=== PATIENT | male | born 1995 | race Caucasian/White ===

== ENCOUNTER 2020-12-29 14:25 | Emergency (ER) | payer MEDICAID, SELFPAY ==
[2020-12-29 15:42] VITALS: BP 148/77; PULSE 104; RESP 16; TEMP 38.1; O2SAT 98; BMI 26.6
--- NOTE | 2020-12-29 15:57 | HMH.EDUTC ---
[facility] Disposition Clinical Impression: Viral syndrome, Exposure to COVID-19 virus Sinusitis Qualifiers: Sinusitis location: unspecified location Chronicity: acute Recurrence: non-recurrent Qualified Code(s): J01.90 - Acute sinusitis, unspecified Disposition: Home, Self-Care Condition on Discharge: Good Instructions: DI for COVID-19 (Suspected or Confirmed ), Preventing the Spread of Coronavirus Discharge Instructions Additional Instructions: Drink plenty of fluids. Take tylenol or ibuprofen for pain or fever. Take the medications as directed. Follow up with your regular doctor. GO TO THE ER FOR ANY WORSENING SYMPTOMS Quarantine until you know the results of your covid-19 test. If it is positive, the health department should call you and give you further instructions about your length of Quarantine and other things. Notify your school or workplace of your results and follow their instructions regarding return to work/school. Prescriptions: Brompheniramine/Pseudoephed/Dm [Bromfed Dm Cough Syrup] 5 ml PO Q6HP PRN #240 ml PRN Reason: Cough Transmission Status: Received by [facility] #[id number] Azithromycin [Z-Hever 250mg Tab*] 250 mg PO UD DOSE PK #6 tab Transmission Status: Received by [facility] #[id number] Ondansetron [Zofran 4mg ODT] 4 mg PO DAILYP PRN #12 tab PRN Reason: Nausea Transmission Status: Received by [facility] #[id number] Referrals: Provider,Referral, MD [Primary Care Provider] - Forms: Work/School Release Time of Disposition: 16:08 Medical Decision Making - Medical Records Medical records reviewed: No: I reviewed the patient's medical records. - Kristofer Inquiry Pt receiving controlled substance: No Vital Signs: 12/29/20 15:42 12/29/20 16:15 Temperature 100.5 F H 98 F Temperature Source Oral Pulse Rate 104 H Pulse Rate [Right Radial] 104 H Respiratory Rate 16 16 Blood Pressure 148/77 H Blood Pressure [Right Arm] 148/77 H Blood Pressure Mean [Right Arm] 100 Blood Pressure Source [Right Arm] Automatic Cuff Blood Pressure Position [Right Arm] Sitting 02 Sat by Pulse Oximetry 98 Oxygen Delivery Method Room Air [facility] HPI - General Stated complaint: Congestion, runny nose Time Seen by Provider: 12/29/20 15:57 Mode of Arrival: Ambulatory Source of Information: Patient Limitations: No Limitations Description of Symptoms (Recalled from Triage Doc. by RN): C/O bodyaches, sinus congestion, earache, diarrhea, sweats HEENT Symptoms (Recalled from RN notes): Yes (earache, sinus congestion) Resp Symptoms (Recalled from RN notes): No Skin Symptoms (Recalled from RN notes): No MS Symptoms (Recalled from RN notes): Yes (bodyaches) Functional Status (Recalled from RN notes): n/a - History of Present Illness Provider Complaint: He states that for the past 2 days he has had sinus congestion, scratchy sore throat, a dry cough and diarrhea. He denies any known covid-19 or other sick contacts. He has not been vaccinated against covid-19. - Related Data Previous Rx's Medication Instructions Recorded Azithromycin [Z-Hever 250mg Tab*] 250 mg PO UD DOSE PK #6 tab 12/29/20 Brompheniramine/Pseudoephed/Dm 5 ml PO Q6HP PRN #240 ml 12/29/20 [Bromfed Dm Cough Syrup] Ondansetron [Zofran 4mg ODT] 4 mg PO DAILYP PRN #12 tab 12/29/20 Allergies Allergy/AdvReac Type Severity Reaction Status Date / Time No Known Allergies Allergy Verified 12/29/20 15:49 - Worker's Comp Is this a Worker's Comp case?: No [facility] History - Hepatitis A Screen Drug use history?: No High risk sexual behaviors?: No History of sexually transmitted infection?: No Currently employed?: No Childcare worker?: No Do you have indoor plumbing?: Yes Do you have electricity?: Yes Attestation statement:: This patient has been screened for Hepatitis A risk factors. I have reviewed the patient's past medical history: Yes ROS Obtained: Yes All systems reviewed & no addition
[2020-12-29 16:15] VITALS: BP 148/77; PULSE 104; RESP 16; TEMP 36.6; O2SAT 98
== END 2020-12-29 16:16 | disposition home or self-care (01) ==
PROVIDERS: Emergency Provider Nurse Practitioner Family
DX: U07.1 COVID-19 (principal); J01.90 Acute sinusitis, unspecified; B34.9 Viral infection, unspecified
CPT/HCPCS: 99202; C9803; G0463; U0003; U0005

== ENCOUNTER 2023-04-02 18:28 | Emergency (ER) | payer MEDICAID, SELFPAY ==
[2023-04-02 18:45] VITALS: BP 139/78; PULSE 86; RESP 18; TEMP 36.7; O2SAT 98; BMI 24.0
--- NOTE | 2023-04-02 18:48 | EXP.UTC ---
Discharge Plan Disposition Patient Disposition: Home, Self-Care Condition: Good Prescriptions Prescriptions: New azithromycin [Zithromax] 250 mg tablet 250 mg PO UD DOSE PK Qty: 6 0RF Rx Instructions: Take two (2) tablets today, then one (1) tablet days #2 thru #5 [id number] [Bromfed DM] 2-30-10 mg/5 mL Syrup 5 ml PO Q6H PRN (Reason: Cough) Qty: 240 0RF Referrals Follow up/Referrals: Provider,Referral, MD [Primary Care Provider] - See instructions Activity Restrictions/Add. Instructions Additional Instructions/Restrictions: Drink plenty of fluids. Take tylenol or ibuprofen for pain or fever. Take the medications as directed. Follow up with your regular doctor. GO TO THE ER FOR ANY WORSENING SYMPTOMS Clinical Impressions Clinical Impression: Sinusitis Stand Alone Forms Stand Alone Forms: Work/School Release Instructions Patient Instructions: Sinusitis, DI for Sinusitis Discharge ED Provider: Ayden Alicea [facility] General Stated complaint: runny nose, VEE , bilateral earache Time Seen by Provider: 04/02/23 18:47 History of Present Illness Provider Complaint: He states that for the past 2 days he has had sinus congestion, sinus pressure, ear pain and a cough. Related Data Previous Rx's Medication Instructions Recorded azithromycin 250 mg tablet 250 mg PO UD DOSE PK #6 tabs 04/02/23 (Zithromax) [id number]-pcwnkbritnotttc-BT 5 ml PO Q6H PRN Cough #240 mL 04/02/23 2 mg-30 mg-10 mg/5 mL oral syrup (Bromfed DM) Allergies Allergy/AdvReac Type Severity Reaction Status Date / Time No Known Allergies Allergy Verified 04/02/23 18:55 [facility] Disclaimer: The information contained in this section may have been updated after the patient was seen, as this information can be updated by other users. Social History Smoking Status: Never smoker alcohol intake: never current occupational status: employed Travel in the last 8 weeks: None ROS Obtained: Yes All systems reviewed & no additional complaints except as documented Constitutional Constitutional: Reports poor appetite Eyes Eyes: Reports system reviewed and no additional complaints, except as documented ENT Ears, Nose, Mouth, and Throat: Reports as per HPI Cardiovascular Cardiovascular: Reports system reviewed and no additional complaints, except as documented and Denies chest pain Respiratory Respiratory: Denies shortness of breath, Denies chest congestion, Reports cough, Denies stridor and Denies wheezing Gastrointestinal Gastrointestingal: Reports system reviewed and no additional complaints, except as documented; Denies abdominal pain, diarrhea or vomiting Musculoskeletal Musculoskeletal: Reports system reviewed and no additional complaints, except as documented and Denies arthralgias Integumentary/Breasts Skin/Breast: Reports system reviewed and no additional complaints, except as documented and Denies rash Neurologic Neurologic: Denies paresthesias Allergic/Immunologic Allergic/Immunologic: Denies wheezing Physical Exam General General appearance: alert and in no apparent distress Eye Eye exam: Present normal appearance, PERRL and EOMI ENT ENT exam: Present mucous membranes moist and normal external ear exam Expanded ENT Exam External ear exam: Present normal external inspection TM/Canal exam: Bilateral TM: erythema and bulging Nose exam: Absent sinus tenderness Nasal speculum exam: Bilateral: normal Mouth exam: Present normal external inspection; Absent drooling Teeth exam: Present normal inspection Throat exam: Present tonsillar erythema and tonsillomegaly Neck Neck exam: Present normal inspection, full ROM and trachea midline; Absent tenderness, lymphadenopathy or thyromegaly Chest Chest inspection: Present normal inspection and symmetric chest wall rise; Absent tenderness or rash Respiratory Respiratory exam: Present normal lung sounds bilaterally; Absent respira
[2023-04-02 19:06] LABS: UTC Influenza A Antigen Negative (Negative); UTC Influenza B Antigen Negative (Negative)
[2023-04-02 19:43] VITALS: BP 139/78; PULSE 86; RESP 18; TEMP 36.7; O2SAT 98
== END 2023-04-02 19:43 | disposition home or self-care (01) ==
PROVIDERS: Emergency Provider Nurse Practitioner Family
DX: J01.90 Acute sinusitis, unspecified (principal); R51.9 Headache, unspecified; H92.03 Otalgia, bilateral; R09.81 Nasal congestion; R05.9 Cough, unspecified
CPT/HCPCS: 87804; 99212; 99214; G0463

== ENCOUNTER 2023-09-02 11:00 | Emergency (ER) | payer MEDICAID, SELFPAY ==
[2023-09-02 11:10] VITALS: BP 122/72; PULSE 58; RESP 18; TEMP 36.7; O2SAT 98; BMI 23.5
--- NOTE | 2023-09-02 11:27 | ED_ITS ---
Discharge Plan Disposition Patient Disposition: Home, Self-Care Condition: Good Prescriptions Prescriptions: New dicyclomine 10 mg capsule 10 mg PO TID PRN (Reason: abdominal pain) Qty: 20 0RF No Action simethicone [Gas-X Extra Strength] 125 mg capsule 125 mg PO QD-BID PRN loperamide 2 mg capsule 2 mg PO DAILY Referrals Follow up/Referrals: Provider,Referral, MD [Primary Care Provider] - See instructions Activity Restrictions/Add. Instructions Additional Instructions/Restrictions: Keep appointment for Colonoscopy as scheduled You was given a list of accepting physicians to get yourself a family Doctor Keep food diary as discussed Straight to ER if any life threatening symptoms Clinical Impressions Clinical Impression: Diarrhea, Abdominal cramping Stand Alone Forms Stand Alone Forms: Work/School Release Instructions Patient Instructions: Diarrhea, Dicyclomine Discharge ED Provider: Zoë Weeks [facility] [place] HPI General Stated complaint: abd pain, diarrhea Mode of Arrival: Ambulatory Source of Information: Patient Limitations: No Limitations Time Seen by Provider: 09/02/23 11:27 Description of Symptoms (Recalled from Triage Doc. by RN): Pt's symptoms are diarrhea, and pain on the left of belly buttom (cramping) that comes and goes. HEENT Symptoms (Recalled from RN notes): No Resp Symptoms (Recalled from RN notes): No Skin Symptoms (Recalled from RN notes): No MS Symptoms (Recalled from RN notes): No Functional Status (Recalled from RN notes): n/a History of Present Illness Provider Complaint: Patient states that for awhile now he has been having diarrhea and cramping on and off that comes and goes States he is suppose to have Colonoscopy on September 14 States today he woke up having diarrhea and cramping and wasnt able to go to work so he came in to get checked and get a note for work Related Data Home Medications Medication Instructions Recorded Confirmed simethicone 125 mg capsule (Gas-X 125 mg PO QD-BID PRN 07/17/23 07/17/23 Extra Strength) loperamide 2 mg capsule 2 mg PO DAILY 09/02/23 09/02/23 Previous Rx's Medication Instructions Recorded dicyclomine 10 mg capsule 10 mg PO TID PRN abdominal pain 09/02/23 #20 caps Allergies Allergy/AdvReac Type Severity Reaction Status Date / Time No Known Allergies Allergy Verified 09/02/23 11:25 Worker's Comp Is this a Worker's Comp case?: No [facility] Disclaimer: The information contained in this section may have been updated after the patient was seen, as this information can be updated by other users. Medical History (Updated 09/02/23 @ 11:31 by Zoë Weeks APRN) No significant past medical history Surgical History (Updated 07/17/23 @ 14:38 by Jairon Jaramillo) No significant past surgical history Family History (Updated 07/17/23 @ 14:38 by Jairon Jaramillo) Other No significant family history Social History (Updated 04/03/23 @ 20:15 by Ayden Alicea APRN) Smoking Status: Never smoker alcohol intake: never current occupational status: employed Travel in the last 8 weeks: None ROS Obtained: Yes All systems reviewed & no additional complaints except as documented and Yes Systems reviewed as appropriate & no additional complaints except as documented Constitutional Constitutional: Reports system reviewed and no additional complaints, except as documented, Reports as per HPI, Denies body ache, Denies chills and Denies fever(s) ENT Ears, Nose, Mouth, and Throat: Reports system reviewed and no additional complaints, except as documented and Reports as per HPI Cardiovascular Cardiovascular: Reports system reviewed and no additional complaints, except as documented and Reports as per HPI Respiratory Respiratory: Reports system reviewed and no additional complaints, except as documented and Reports as per HPI Gastrointestinal Gastrointestingal: Reports system reviewed and no additional complaints, except as documented, as per HPI, cramping and diarrhea Physical Exam General General appearance: alert and in no apparent distress ENT ENT exam: Present mucous membranes moist Respiratory Respiratory exam: Present normal lung sounds bilaterally; Absent respiratory distress or wheezes Cardiovascular Cardiovascular exam: Present regular rate, normal rhythm and normal heart sounds Abdominal Exam Abdominal exam: Present soft and normal bowel sounds; Absent distention, tendern ess, guarding or rebound Neurological Exam Neurological exam: Present alert, oriented X3 and normal gait Medical Decision Making Kristofer Inquiry Pt receiving controlled substance: No Kristofer was queried for this patient: No Vital Signs: 09/02/23 11:10 Temperature 98.1 F Temperature Source Oral Pulse Rate [Right Radial] 58 L Respiratory Rate 18 Blood Pressure [Right Arm] 122/72 Blood Pressure Mean [Right Arm] 88 Blood Pressure Source [Right Arm] Automatic Cuff Blood Pressure Position [Right Arm] Sitting 02 Sat by Pulse Oximetry 98 Oxygen Delivery Method Room Air
[2023-09-02 11:54] VITALS: BP 122/72; PULSE 58; RESP 18; TEMP 36.7; O2SAT 98
== END 2023-09-02 11:54 | disposition home or self-care (01) ==
PROVIDERS: Emergency Provider Nurse Practitioner
DX: R10.815 Periumbilic abdominal tenderness (principal); R19.7 Diarrhea, unspecified
CPT/HCPCS: 99212; 99214; G0463